=== PATIENT | male | born 1995 | race Caucasian/White ===

== ENCOUNTER → 2019-10-31 | Outpatient (CLI) | payer OTHER ==
[~2019-10-31] MED LIST: E-Z-GAS II EFFERVESCENT PACKET (SODIUM BICARB./CITRIC ACID/SIMETHICONE) As Ordered ONE; E-Z-HD 98% w/w 340GM SUSP BTL As Ordered ONE; E-Z-PAQUE 96% w/w SUSP 176GM BTL As Ordered ONE
--- NOTE | 2019-11-04 10:07 | REP ---
Upper GI Air Contrast with SBFT The procedure was performed by VIRI Shelton, under the the direct supervision of Dr. Meza. The images were reviewed with Dr. Meza. The derrick man film shows no organomegaly or pathological masses. The intestinal gas pattern appears normal. Liquid barium and gas producing crystals were given in the erect position as well as liquid barium in the prone position in order to perform a double contrast upper GI examination. The oral and pharyngeal stages of deglutition were unremarkable. Esophageal transport is efficient and there is no esophagitis, stricture, or mucosal ring noted. There is no hiatal hernia. Gastroesophageal reflux is visualized to the level of the blanka. The stomach pace are normally outlined. The rugal folds are smooth and regular. There is no gastritis, neoplasm, or ulcer disease noted. The duodenal pace are normally outlined. The mucosal folds are smooth and regular. There is no duodenitis, peptic ulcer disease, or neoplasm noted. The visualized portion of the proximal small bowel appears normal in course and caliber. The barium column was followed through the small bowel to the level of the terminal ileum. Small bowel transit time was approximately 40 minutes. During fluoroscopy gentle palpation shows all loops are freely mobile and pliable. There are no fixed or angulated loops. The small bowel mucosal pattern is normal in course and caliber. There is no transition to set suggest a partial small-bowel obstruction. Spot filming of the terminal ileum shows it to be unremarkable. Impression: 1. Gastroesophageal reflux to the level of the blanka. 2. Small bowel transit time of approximately 40 minutes. 1.4 minutes of fluoroscopy time was utilized for this procedure. Some fluoroscopic images are performed with last image hold technology. These images require no additional radiation. Reviewed by VIRI Santana 10/31/2019 03:38 P Electronically Signed by Meir Meza MD 11/04/2019 09:59 A
== END ==
LOC: M RAD 08:27
PROVIDERS: ATTEND Internal Medicine Gastroenterology
DX: K21.9 Gastro-esophageal reflux disease without esophagitis (principal); R11.2 Nausea with vomiting, unspecified

== ENCOUNTER → 2019-11-11 | Outpatient (CLI) | payer OTHER ==
--- NOTE | 2020-01-06 07:31 | REP ---
GASTRIC EMPTYING NUCLEAR SCINTIGRAPHY: HISTORY: Nausea and vomiting. COMPARISON: None. Report was delayed due to network access issues resulting from a malware attack on the facility. TECHNIQUE: 1.06 mCi of Technetium-99m sulfur colloid is ingested in 1 scrambled eggs with 6 ounces of water. Anterior and posterior sequential imaging was acquired over an 89 minute imaging interval. Regions of interest are plotted around the stomach to plot the gastric emptying curve. RESULTS: 100% gastric emptying was observed during the 89 minute imaging interval. The calculated T is 30 minutes. Normal T is 90 minutes. IMPRESSION: Normal prompt gastric emptying. MTDD
== END ==
LOC: M RAD 12:30 → EDUNIT# 13:00
PROVIDERS: ATTEND Internal Medicine Gastroenterology
DX: R11.2 Nausea with vomiting, unspecified (principal)